=== PATIENT | female | born 1965 | race African-American/Black ===

== ENCOUNTER 2022-12-31 15:10 | Emergency (ER) | payer MEDICAID ==
[2022-12-31 15:15] VITALS: TEMP 97.5
[2022-12-31] MEDS ORDERED: FLEXERIL 1010 MG/TAB PO (17:29)
[2022-12-31 18:15] VITALS: BP 140/90; PULSE 80
== END 2022-12-31 18:48 | disposition home or self-care (01) ==
LOC: COL.ER 15:10
DX: S06.0X0A Concussion without loss of consciousness, initial encounter (principal); S39.012A Strain of muscle, fascia and tendon of lower back, initial encounter; F17.200 Nicotine dependence, unspecified, uncomplicated; Z28.310 Unvaccinated for COVID-19; Y04.8XXA Assault by other bodily force, initial encounter